=== PATIENT | female | born 1950 | race Caucasian/White ===

== ENCOUNTER 2017-02-25 13:20 | Emergency (ER) | payer MEDICARE | END 2017-02-25 13:58 | disposition home or self-care (01) | DX: K04.7 Periapical abscess without sinus (principal); Z87.891 Personal history of nicotine dependence ==

== ENCOUNTER 2017-02-26 06:37 | Emergency (ER) | payer MEDICARE ==
[2017-02-26 06:46] VITALS: BP 160/91
--- NOTE | 2017-02-26 07:06 | ED Physician Documentation ---
PD HPI HEENT - Stated complaint Stated Complaint: FACIAL SWELLING - Chief complaint Chief Complaint: Heent - History obtained from History obtained from: Patient - History of Present Illness Timing - duration: Days Timing - details: Gradual onset, Still present Location: Tooth (left lower tooth and gum swelling for few days. Seen yesterday in ED but swelling increased some overnight. Pain meds not helping well until took 2 overnight. That worked better.) Worsens: Other (pressure and temperature.) Associated symptoms: No: Fever, Swollen nodes Recently seen: Emergency Dept (yesterday) Review of Systems Constitutional: denies: Fever, Chills Throat: denies: Sore throat Cardiac: denies: Chest pain / pressure Respiratory: denies: Cough GI: denies: Nausea, Vomiting PD PAST MEDICAL HISTORY - Past Medical History Cardiovascular: None Respiratory: None Neuro: None Endocrine/Autoimmune: None - Past Surgical History Past Surgical History: Yes General: Cholecystectomy - Present Medications Home Medications: Ambulatory Orders Medication Instructions Recorded Confirmed Amoxicillin 500 mg PO TID #30 capsule 02/25/17 HYDROcod/ACETAM 5/325 [[place] 5/325] 1 - 2 ea PO Q6H PRN #12 tablet 02/25/17 Clindamycin [Cleocin] 150 mg PO TID #15 capsule 02/26/17 Hydrocodone/Acetaminophen [[place] 1 each PO Q6H PRN #20 tablet 02/26/17 5-325 Tablet] - Allergies Allergies/Adverse Reactions: Allergies Allergy/AdvReac Type Severity Reaction Status Date / Time codeine AdvReac Anxiety Verified 02/25/17 13:33 - Social History Does the pt smoke?: No Smoking Status: Former smoker Does the pt drink ETOH?: Yes Does the pt have substance abuse?: No - Immunizations Immunizations are current?: Yes PD ED PE NORMAL - Vitals Vital signs reviewed: Yes - General General: Alert and oriented X 3, No acute distress, Well developed/nourished - HEENT HEENT: Other (left lower facial swelling without fluctuance. Swelling along gumline left lower. No swelling sublingual nor anterior neck. Normal swallow and voice. ) - Neck Neck: Supple, no meningeal sign, No adenopathy - Cardiac Cardiac: RRR, No murmur - Respiratory Respiratory: Clear bilaterally Results - Vitals Vitals: Vital Signs - 24 hr 02/26/17 06:42 Temperature 36.5 C Heart Rate 69 Respiratory 17 Rate Blood Pressure 160/91 H O2 Saturation 96 Oxygen O2 Source Room air PD MEDICAL DECISION MAKING - ED course Complexity details: considered differential, d/w patient Departure - Departure Disposition: 01 Home, Self Care Clinical Impression: Dental abscess Condition: Stable Record reviewed to determine appropriate education?: Yes Instructions: ED Abscess Dental Prescriptions: Clindamycin [Cleocin] 150 mg PO TID #15 capsule Hydrocodone/Acetaminophen [[place] 5-325 Tablet] 1 each PO Q6H PRN #20 tablet PRN Reason: Pain Comments: Continue the Amoxicillin from yesterday; add Clindamycin as directed for 5 days to broaden the coverage. Drink lots of fluids. Tylenol or Ibuprofen as needed for pains; add hydrocodone 1-2 every 4-6 hours as needed for pain. Follow up Dentist in the next week or so. Return if not improving over the next 2-3 days.
[2017-02-26] MEDS ORDERED: CLINDAMYCIN 150 MG CAPSULE PO STA (07:22)
[2017-02-26] MEDS ORDERED: CLINDAMYCIN 150 MG CAPSULE PO ONE (07:24)
== END 2017-02-26 07:31 | disposition home or self-care (01) ==
LOC: ED 06:37
DX: K04.7 Periapical abscess without sinus (principal); Z87.891 Personal history of nicotine dependence
CPT/HCPCS: 99283; A9270

== ENCOUNTER 2021-03-21 11:08 | Emergency (ER) | payer MEDICARE ==
--- NOTE | 2021-03-21 11:47 | ED Physician Documentation ---
PD HPI NVD - Stated complaint Stated Complaint: DIZZY,N/V - Chief complaint Chief Complaint: Neuro - History obtained from History obtained from: Patient - History of Present Illness Timing - onset: How many days ago (5) Timing - duration: Days (5) Timing - details: Abrupt onset, Still present Associated symptoms: Abdominal pain (lower), Loss of appetite, Other (nausea with vomiting, unable to keep food down. Feeling generally weak. Some loose stool but not significant diarrhea.). No: Fever, Melena, Weight loss Contributing factors: No: Sick contact, Bad food, Recent antibiotics, Diabetes Similar symptoms before: Has not had sx before Recently seen: Not recently seen Review of Systems Constitutional: reports: Myalgias, Fatigue. denies: Fever, Chills Nose: denies: Rhinorrhea / runny nose, Congestion Throat: denies: Sore throat Respiratory: denies: Cough GI: reports: Abdominal Pain, Nausea, Vomiting, Diarrhea. denies: Abdominal Swelling, Constipation, Hematemesis, Bloody / black stool : denies: Dysuria, Frequency Neurologic: reports: Generalized weakness. denies: Difficulty speaking, Altered mental status, Headache PD PAST MEDICAL HISTORY - Past Medical History Cardiovascular: None Respiratory: None Endocrine/Autoimmune: None GI: Other (diverticula but no prior diverticulitis. ) - Past Surgical History Past Surgical History: Yes General: Cholecystectomy - Present Medications Home Medications: Ambulatory Orders Medication Instructions Recorded Confirmed Amox/Clav 875/125 [Augmentin] 1 each PO Q12H #10 tablet 03/21/21 Naproxen [Naprosyn] 250 mg PO BID #14 tablet 03/21/21 Omeprazole [PriLOSEC] 10 mg PO DAILY 03/21/21 03/21/21 Ondansetron Odt [Zofran] 4 mg TL Q6H PRN #15 tablet 03/21/21 - Allergies Allergies/Adverse Reactions: Allergies Allergy/AdvReac Type Severity Reaction Status Date / Time codeine AdvReac Anxiety Verified 03/21/21 11:42 - Social History Does the pt smoke?: No Smoking Status: Never smoker Does the pt drink ETOH?: Yes Does the pt have substance abuse?: No - Immunizations Immunizations are current?: Yes PD ED PE NORMAL - Vitals Vital signs reviewed: Yes - General General: Alert and oriented X 3, Well developed/nourished, Other (Appears pale and generally weak with holding an emesis bag with nausea.) - HEENT HEENT: Pharynx benign. No: Moist mucous membranes - Neck Neck: Supple, no meningeal sign, No adenopathy - Cardiac Cardiac: RRR, No murmur - Respiratory Respiratory: Clear bilaterally - Abdomen Abdomen: Normal bowel sounds, Soft, Non distended, No organomegaly, Other (tender without guarding lower abd and left mainly. Small nontender inguinal hernia felt. Not hard. ) - Female Female : Deferred - Rectal Rectal: Deferred - Back Back: No CVA TTP - Derm Derm: Warm and dry. No: Normal color (pale) - Extremities Extremities: Normal ROM s pain, No edema, No calf tenderness / cord - Neuro Neuro: Alert and oriented X 3, No motor deficit, Normal speech Eye Opening: Spontaneous Motor: Obeys Commands Verbal: Oriented GCS Score: 15 Results - Vitals Vitals: Vital Signs - 24 hr 03/21/21 14:58 Temperature 36.9 C Heart Rate 60 Respiratory 18 Rate Blood Pressure 186/90 H O2 Saturation 100 Oxygen O2 Source Room air - Labs Labs: Microbiology 03/21/21 12:22 Urine Culture - Preliminary Urine,Clean Catch Laboratory Tests 03/21/21 03/21/21 03/21/21 12:22 12:30 12:30 WBC 6.3 RBC 5.48 H Hgb 15.3 Hct 48.5 H MCV 88.5 MCH 27.9 MCHC 31.5 L RDW 14.7 Plt Count 371 MPV 9.2 Neut # (Auto) 4.3 Lymph # (Auto) 1.3 L [place] # (Auto) 0.5 Eos # (Auto) 0.1 Baso # (Auto) 0.1 Absolute Nucleated RBC 0.00 Nucleated RBC % 0.0 Sodium 133 L Potassium 3.7 Chloride 96 L Carbon Dioxide 28 Anion Gap 9.0 BUN 9 Creatinine 0.7 Estimated GFR (MDRD) 83 L Glucose 118 H Calcium 9.3 Magnesium 2.2 Total Bilirubin 1.1 H AST 26 ALT 29 Alkaline Phosphatase 70 Total Protein 7.7 Albumin 3.8 Globulin 3.9 Albumin/Globulin Ratio 1.0 Lipase 27 Urine Color YELLOW Urine Clarity HAZY Urine pH 6.5 Ur Specific [place] 1.025 Urine Protein NEGATIVE Urine Glucose (UA) NEGATIVE Urine Ketones NEGATIVE Urine Occult Blood TRACE-INTA Urine Nitrite NEGATIVE Urine Bilirubin NEGATIVE Urine Urobilinogen 0.2 (NORMAL) Ur Leukocyte Esterase SMALL H Urine RBC 0-5 Urine WBC 4-5 Ur Squamous Epith Cells FEW Squamous Urine Bacteria Rare Urine Mucus Few Strands Ur Microscopic Review INDICATED Urine Culture Comments INDICATED - Rads (name of study) abd/pelvic CT Radiology: Prelim report reviewed (segment of colonic wall thickening near diverticula, c/w local diverticulitis. No free fluid, no abscess. ), See rad report PD MEDICAL DECISION MAKING - ED course Complexity details: reviewed results, re-evaluated patient (improved color and comfort. Able to drink water/fluids. ), considered differential (viral GE vs food related, or consider such as diverticulitis. Will get labs and CT. Give IV fluids and meds. ), d/w patient Departure - Departure Disposition: 01 Home, Self Care Clinical Impression: Dehydration, Acute diverticulitis Nausea and vomiting Qualifiers: Vomiting type: unspecified Vomiting Intractability: intractable Qualified Code(s): R11.2 - Nausea with vomiting, unspecified Condition: Stable Record reviewed to determine appropriate education?: Yes Instructions: ED Nausea Vomiting Follow-Up: Kassandra Alaniz MD [Primary Care Provider] - Prescriptions: Amox/Clav 875/125 [Augmentin] 1 each PO Q12H #10 tablet Naproxen [Naprosyn] 250 mg PO BID #14 tablet Ondansetron Odt [Zofran] 4 mg TL Q6H PRN #15 tablet PRN Reason: Nausea / Vomiting Comments: Your CT scan shows a small area of localized colitis around the diverticula (so mild diverticulitis). Stay well-hydrated with small frequent fluids and have bland food initially as tolerated by your stomach. Continue usual medications. Add ondansetron if needed for nausea. Naproxen twice daily for inflammation. Augmentin twice daily for infection. I would anticipate improvement through today and to tomorrow in the next few days. Recheck if not consistently improving over the next several days. Discharge Date/Time: 03/21/21 15:00
[2021-03-21] MEDS ORDERED: SODIUM CHLORIDE 0.9% 1,000 ML IV STA ×2 (12:10)
[2021-03-21] MEDS ORDERED: PANTOPRAZOLE 40 MG VIAL IVP STA (12:10)
[2021-03-21] MEDS ORDERED: DROPERIDOL 5 MG/2 ML VIAL IVP STA (12:10)
[2021-03-21 12:38] LABS: BASOPHILS # (AUTO) 0.1 10^3/uL (0.0-0.1); BASOPHILS % (AUTO) 1.4 %; EOSINOPHILS # (AUTO) 0.1 10^3/uL (0.0-0.7); EOSINOPHILS % (AUTO) 1.1 %; HCT - HEMATOCRIT 48.5 % (37.0-47.0); HGB - HEMOGLOBIN 15.3 g/dL (12.0-16.0); LYMPHOCYTES # (AUTO) 1.3 10^3/uL (1.5-3.5); LYMPHOCYTES % (AUTO) 20.7 %; MEAN CORPUSCULAR HEMOGLOBIN 27.9 pg (27.0-31.0); MEAN CORPUSCULAR HGB CONC 31.5 g/dL (32.0-36.0); MEAN CORPUSCULAR VOLUME 88.5 fL (81.0-99.0); MEAN PLATELET VOLUME 9.2 fL (7.9-10.8); MONOCYTES # (AUTO) 0.5 10^3/uL (0.0-1.0); MONOCYTES % (AUTO) 7.5 %; NEUTROPHILS # (AUTO) 4.3 10^3/uL (1.5-6.6); NEUTROPHILS % (AUTO) 68.7 %; PLT - PLATELET COUNT 371 10^3/uL (130-450); RED BLOOD COUNT 5.48 10^6/uL (4.20-5.40); RED CELL DISTRIBUTION WIDTH 14.7 % (12.0-15.0); WHITE BLOOD COUNT 6.3 x10^3/uL (4.8-10.8)
[2021-03-21 12:40] LABS: BILIRUBIN,URINE NEGATIVE (NEGATIVE); GLUCOSE, URINE (UA) NEGATIVE (NEGATIVE); KETONES,URINE (UA) NEGATIVE (NEGATIVE); LEUKOCYTE ESTERASE, URINE SMALL (NEGATIVE); NITRITE,URINE NEGATIVE (NEGATIVE); OCCULT BLOOD,URINE TRACE-INTA (NEGATIVE); PH,URINE 6.5 PH (5.0-7.5); PROTEIN,URINE NEGATIVE (NEGATIVE); UROBILINOGEN,URINE 0.2 (NORMAL) E.U./dL (NORMAL)
[2021-03-21 12:46] LABS: CLARITY,URINE HAZY (CLEAR)
[2021-03-21 12:52] LABS: ALBUMIN 3.8 g/dL (3.2-5.5); BILIRUBIN,TOTAL 1.1 mg/dL (0.2-1.0); CALCIUM 9.3 mg/dL (8.5-10.3); CREATININE 0.7 mg/dL (0.4-1.0); MAGNESIUM 2.2 mg/dL (1.7-2.8); POTASSIUM 3.7 mmol/L (3.5-5.0); TOTAL PROTEIN 7.7 g/dL (6.7-8.2)
[2021-03-21 12:53] LABS: BACTERIA,URINE Rare /HPF (None Seen); MUCUS,URINE Few Strands; RBC,URINE 0-5 /HPF (0-5); SQUAMOUS EPITHELIAL CELL,UR FEW Squamous (<= Few)
[2021-03-21] MEDS ORDERED: IOVERSOL 320 100 ML VIAL IVP ONE ×2 (12:54→15:27)
--- NOTE | 2021-03-21 14:03 | CT Report ---
PROCEDURE: Abdomen/Pelvis W INDICATIONS: Abdominal pain, acute, nonlocalized CONTRAST: IV CONTRAST: Optiray 320 ml: 100 PO CONTRAST: *NO PO CONTRAST TECHNIQUE: After the administration of IV contrast, 5 mm thick sections acquired from the diaphragms to the symp hysis. 5 mm thick coronal and sagittal reformats were acquired. For radiation dose reduction, the f ollowing was used: automated exposure control, adjustment of mA and/or kV according to patient size. COMPARISON: None. FINDINGS: Image quality: Excellent. ABDOMEN: Lung bases: Lung bases are clear. Heart size is normal. Solid organs: Liver demonstrates two low-attenuation foci the largest in the right lobe measuring 1. 0 cm with Hounsfield units measuring approximately 20. Liver is mildly enlarged with steatosis. The s pleen is unremarkable. Gallbladder has been removed Biliary system is non dilated. Pancreas enhanc es normally. No adrenal nodules. Kidneys demonstrate normal size and enhancement, without hydroneph rosis. Peritoneum and bowel: Bowel loops demonstrate very minimal appearance of questionable focal descendi ng bowel loop thickening and pericolonic stranding.. Colonic diverticula are present consistent with inflammatory change. Appendix is normal. No free fluid or free air. Nodes and vessels: No retroperitoneal or mesenteric adenopathy by size criteria. Aorta and inferior vena cava are normal in size. Miscellaneous: No ventral hernias. Prominent hiatal hernia. PELVIS: Genitourinary: Bladder wall thickness is normal. Miscellaneous: Fat-containing bilateral inguinal hernias are noted. Bones: No suspicious bony lesions. No vertebral body compression fractures. IMPRESSION: 1.Focus of slightly thickened descending focal loop of bowel with minimal stranding. While this somew hat nonspecific, it could represent early changes of colitis secondary to diverticulitis. 2. Hepatic cysts. Reviewed by: Geno Pederson MD on 03/21/2021 2:02 PM PDT Approved by: Geno Pederson MD on 03/21/2021 2:02 PM PDT Station ID: [id number]
[2021-03-21] MEDS ORDERED: KETOROLAC 15 MG/ML VIAL IVP STA (14:17)
[2021-03-21] MEDS ORDERED: cefTRIAXone 1 GM VIAL IVP STA (14:17)
[2021-03-21 15:00] VITALS: BP 186/90
== END 2021-03-21 15:00 | disposition home or self-care (01) ==
LOC: ED 11:08
DX: E86.0 Dehydration (principal); K57.92 Diverticulitis of intestine, part unspecified, without perforation or abscess without bleeding
CPT/HCPCS: 36415; 74177; 80053; 81001; 83690; 83735; 85025; 87086; 93005; 96374; 96375; 99284; 99285; Q9967; 81003; 87077; 87181